=== PATIENT | female | born 1960 | race Two or more races ===

== ENCOUNTER 2017-11-08 08:01 | Emergency (ER) | payer OTHER ==
[~2017-11-08] VITALS: Ht 160 cm; Wt 65.5 kg
[~2017-11-08 08:01] MED LIST: ALBU2.5V NEB; DOXY100T PO; FLUT1DIS5 IH; LEVO750T26; METF25CR; OMNICEF PO; PRED10TA14; PRED10TA14 PO
[2017-11-08] MEDS ORDERED: METF10002 PO (08:51)
[2017-11-08] MEDS ORDERED: LISI-167 PO (08:55)
[2017-11-08] MEDS ORDERED: LOVA10TA PO (08:55)
[2017-11-08] MEDS ORDERED: GLIM4TAB2 PO (08:55)
[2017-11-08] MEDS ORDERED: SODIUM CHLORIDE FLUSH 10ML SYR IVF ONE (09:00)
[2017-11-08] MEDS ORDERED: SODIUM CHLORIDE 0.9% 1,000ML IVBOLUS ONE (09:00)
[2017-11-08 09:19] LABS: BASOPHILS # (AUTO) 0.07 x10^3/uL (0-0.1); BASOPHILS % (AUTO) 1 % (0-1); EOSINOPHILS % (AUTO) 9 % (1-7); LYMPHOCYTES # (AUTO) 2.64 x10^3/uL (1-3.4); LYMPHOCYTES % (AUTO) 29 % (22-44); MD NO; MEAN CORPUSCULAR HEMOGLOBIN 31.8 pg (27.0-34.8); MEAN CORPUSCULAR HGB CONC 33.9 g/dL (32.4-35.8); MEAN CORPUSCULAR VOLUME 93.9 fL (80-100); MEAN PLATELET VOLUME 9.7 fL (7.4-10.4); MONOCYTES # (AUTO) 0.74 x10^3/uL (0.2-0.8); MONOCYTES % (AUTO) 8 % (2-9); NEUTROPHILS # (AUTO) 4.79 x10^3/uL (1.8-6.8); NEUTROPHILS % (AUTO) 53 % (42-75); PLATELET COUNT 210 x10^3/uL (130-400); RED BLOOD COUNT 4.57 x10^6/uL (3.82-5.3); RED CELL DISTRIBUTION WIDTH 13.8 % (9.6-15.2)
[2017-11-08] MEDS: ALBUTEROL/IPRATROPIUM 2.5MG/0.5MG, 3 ML NPPB SCH ×2 (09:20→10:33)
[2017-11-08] MEDS ORDERED: ALBUTEROL/IPRATROPIUM 2.5MG/0.5MG, 3 ML ONE ×2 (09:20→10:33)
[2017-11-08 09:30] LABS: ALBUMIN 3.7 g/dL (3.4-5.0); ANION GAP 8 mmol/L (5-15); CALCIUM 8.7 mg/dL (8.5-10.1); CHLORIDE 111 mmol/L (98-107); CREATININE 0.73 mg/dL (0.55-1.02)
[2017-11-08] MEDS ORDERED: ALBUTEROL SULFATE 2.5 MG/3 ML NPPB ONE (10:30)
[2017-11-08] MEDS ORDERED: ALBUTEROL SULFATE 2.5MG/0.5ML ONE (10:35)
[2017-11-08 11:24] VITALS: BP 124/64
== END 2017-11-08 11:28 | disposition home or self-care (01) ==
LOC: ED 10:52
DX: J45.30 Mild persistent asthma, uncomplicated (principal); J40 Bronchitis, not specified as acute or chronic; I10 Essential (primary) hypertension; E11.9 Type 2 diabetes mellitus without complications; E78.5 Hyperlipidemia, unspecified
CPT/HCPCS: 36415; 71046; 80048; 82040; 83605; 85025; 93005; 94640; 99285; J7512; J7613; J7620

== ENCOUNTER 2018-01-02 20:12 | Inpatient (IN) | payer OTHER ==
[~2018-01-02] VITALS: Ht 160 cm; Wt 65.9 kg
[~2018-01-02 20:12] MED LIST changes: +GLIM4TAB2 PO; +LISI-167 PO; +LOVA10TA PO; +METF10002 PO
[2018-01-02] MEDS ORDERED: ALBUTEROL/IPRATROPIUM 2.5MG/0.5MG, 3 ML NPPB ONE (20:30)
[2018-01-02 20:53] LABS: BASOPHILS # (AUTO) 0.09 x10^3/uL (0-0.1); BASOPHILS % (AUTO) 1 % (0-1); EOSINOPHILS # (AUTO) 1.01 x10^3/uL (0-0.4); EOSINOPHILS % (AUTO) 11 % (1-7); LYMPHOCYTES # (AUTO) 3.78 x10^3/uL (1-3.4); LYMPHOCYTES % (AUTO) 40 % (22-44); MD NO; MEAN CORPUSCULAR HEMOGLOBIN 31.6 pg (27.0-34.8); MEAN CORPUSCULAR HGB CONC 33.8 g/dL (32.4-35.8); MEAN CORPUSCULAR VOLUME 93.4 fL (80-100); MEAN PLATELET VOLUME 9.9 fL (7.4-10.4); MONOCYTES # (AUTO) 0.78 x10^3/uL (0.2-0.8); MONOCYTES % (AUTO) 8 % (2-9); NEUTROPHILS # (AUTO) 3.83 x10^3/uL (1.8-6.8); NEUTROPHILS % (AUTO) 40 % (42-75); PLATELET COUNT 228 x10^3/uL (130-400); RED BLOOD COUNT 4.38 x10^6/uL (3.82-5.3)
[2018-01-02 20:57] LABS: RAPID INFLUENZA A Negative (Negative); RAPID INFLUENZA B Negative (Negative)
[2018-01-02 21:04] LABS: ALANINE AMINOTRANSFERASE 34 U/L (12-78); ALBUMIN 3.6 g/dL (3.4-5.0); ANION GAP 8 mmol/L (5-15); CALCIUM 8.2 mg/dL (8.5-10.1); CHLORIDE 108 mmol/L (98-107); CREATININE 0.82 mg/dL (0.55-1.02)
[2018-01-02 21:08] LABS: ALKALINE PHOSPHATASE 100 U/L (45-117); BILIRUBIN,TOTAL 0.2 mg/dL (0.2-1.0); TOTAL PROTEIN 7.2 g/dL (6.4-8.2); TROPONIN I < 0.015 ng/mL (0.000-0.045)
[2018-01-02] MEDS ORDERED: ALBUTEROL/IPRATROPIUM 2.5MG/0.5MG, 3 ML ONE ×2 (21:53→21:55)
[2018-01-02] MEDS ORDERED: ALBUTEROL/IPRATROPIUM 2.5MG/0.5MG, 3 ML NEB ONE (22:00)
[2018-01-02] MEDS ORDERED: ALBUTEROL SULFATE 2.5 MG/3 ML ONE (23:28)
[2018-01-02] MEDS ORDERED: SODIUM CHLORIDE 0.9% 1,000ML IVBOLUS ONE (23:30)
[2018-01-02] MEDS ORDERED: ALBUTEROL SULFATE 2.5 MG/3 ML NPPB ONE (23:30)
[2018-01-03] MEDS ORDERED: APAP/CODEINE 300/30MG TABLET PO ONE
[2018-01-03] MEDS ORDERED: morphine SULFATE 10 MG/ML, 1ML IVPush PRN (01:00)
[2018-01-03] MEDS ORDERED: ENALAPRILAT 1.25 MG/ML, 2ML IVPush PRN (01:00)
[2018-01-03] MEDS ORDERED: hydrALAzine 20 MG/ML, 1ML IVPush PRN (01:00)
[2018-01-03] MEDS ORDERED: ACETAMINOPHEN 325 MG TABLET PO PRN (01:00)
[2018-01-03] MEDS ORDERED: POLYETHYLENE GLYCOL 17 GM PACKET PO PRN (01:00)
[2018-01-03] MEDS ORDERED: ONDANSETRON 2MG/ML, 2ML IVPush PRN (01:00)
[2018-01-03] MEDS ORDERED: BISACODYL 10 MG SUPP PR PRN (01:00)
[2018-01-03] MEDS: ALBUTEROL/IPRATROPIUM 2.5MG/0.5MG, 3 ML NPPB SCH ×4 (01:28→16:00)
[2018-01-03] MEDS ORDERED: FLUTICASONE/VILANTEROL 200-25MCG/INH INH SCH (01:30)
[2018-01-03 02:00] LABS: FREE T4 (FREE THYROXINE) 0.98 ng/dL (0.76-1.46); THYROID STIMULATING HORMONE 2.81 mIU/L (0.358-3.740)
[2018-01-03 02:28] LABS: HEMOGLOBIN A1C 7.9 % (4.2-6.3)
[2018-01-03] MEDS ORDERED: HEPARIN 5,000 UNITS/ML, 1ML ONE ×2 (03:25→10:15)
[2018-01-03] MEDS ORDERED: methylPREDNISolone SOD SUCC 125 MG/2 ML ONE ×2 (03:25→10:16)
[2018-01-03] MEDS ORDERED: DOXYCYCLINE 100MG TABLET ONE ×2 (03:25→10:16)
[2018-01-03] MEDS: SODIUM CHLORIDE 0.9% 1,000 ML IV SCH ×2 (03:32→11:49)
[2018-01-03] MEDS: methylPREDNISolone SOD SUCC 125 MG/2 ML IVPush SCH ×3 (03:32→16:16)
[2018-01-03] MEDS: DOXYCYCLINE 100MG TABLET PO SCH ×2 (03:33→11:01)
[2018-01-03] MEDS: HEPARIN 5,000 UNITS/ML, 1ML SQ SCH ×2 (03:33→11:02)
[2018-01-03 05:49] LABS: BASOPHILS # (AUTO) 0.02 x10^3/uL (0-0.1); BASOPHILS % (AUTO) 0 % (0-1); EOSINOPHILS # (AUTO) 0.01 x10^3/uL (0-0.4); EOSINOPHILS % (AUTO) 0 % (1-7); LYMPHOCYTES % (AUTO) 12 % (22-44); MD NO; MEAN CORPUSCULAR HEMOGLOBIN 32.2 pg (27.0-34.8); MEAN CORPUSCULAR HGB CONC 34.7 g/dL (32.4-35.8); MEAN CORPUSCULAR VOLUME 92.8 fL (80-100); MEAN PLATELET VOLUME 9.6 fL (7.4-10.4); MONOCYTES # (AUTO) 0.03 x10^3/uL (0.2-0.8); MONOCYTES % (AUTO) 0 % (2-9); NEUTROPHILS # (AUTO) 7.48 x10^3/uL (1.8-6.8); NEUTROPHILS % (AUTO) 88 % (42-75); PLATELET COUNT 205 x10^3/uL (130-400); RED BLOOD COUNT 4.32 x10^6/uL (3.82-5.3); RED CELL DISTRIBUTION WIDTH 13.5 % (9.6-15.2)
[2018-01-03 06:00] LABS: ALANINE AMINOTRANSFERASE 32 U/L (12-78); ALBUMIN 3.6 g/dL (3.4-5.0); ANION GAP 9 mmol/L (5-15); CALCIUM 8.3 mg/dL (8.5-10.1); CHLORIDE 106 mmol/L (98-107); CREATININE 0.87 mg/dL (0.55-1.02)
[2018-01-03 06:15] LABS: ALKALINE PHOSPHATASE 91 U/L (45-117); BILIRUBIN,TOTAL 0.4 mg/dL (0.2-1.0); TOTAL PROTEIN 7.2 g/dL (6.4-8.2)
[2018-01-03] MEDS ORDERED: ALBUTEROL/IPRATROPIUM 2.5MG/0.5MG, 3 ML ONE (06:20)
[2018-01-03] MEDS: INSULIN LISPRO 100 UNITS/ML, PEN SQ-INSULIN SCH ×3 (08:23→16:16)
[2018-01-03] MEDS ORDERED: metFORMIN 500 MG TABLET PO SCH (09:00)
[2018-01-03] MEDS ORDERED: GLIMEPIRIDE 4 MG TABLET PO SCH (09:00)
[2018-01-03] MEDS ORDERED: SENNA/DOCUSATE TABLET PO SCH (09:00)
[2018-01-03] MEDS ORDERED: LISINOPRIL 10 MG TABLET PO SCH (09:00)
[2018-01-03] MEDS ORDERED: SENNA/DOCUSATE TABLET ONE (10:15)
[2018-01-03 11:53] VITALS: BP 135/69
[2018-01-03 12:42] LABS: MICROSCOPIC NOT IND
[2018-01-03 12:51] LABS: CULTURE INDICATED? NO
[2018-01-03 14:39] VITALS: BP 107/53
[2018-01-03] MEDS ORDERED: METF10002 PO (17:04)
[2018-01-03] MEDS ORDERED: GLIM4TAB2 PO (17:04)
[2018-01-03] MEDS ORDERED: IPRA3AMP NPPB (17:04)
[2018-01-03] MEDS ORDERED: DOXY100T PO (17:04)
[2018-01-03] MEDS ORDERED: LISI-167 PO (17:04)
[2018-01-03] MEDS ORDERED: FLUT1BLS INH (17:04)
[2018-01-03] MEDS ORDERED: LOVA10TA PO (17:04)
[2018-01-03] MEDS ORDERED: GUAI-110 PO (17:04)
[2018-01-03] MEDS ORDERED: PRED5TAB PO (17:04)
[2018-01-03] MEDS ORDERED: LOVASTATIN 20 MG TABLET PO SCH (21:00)
[2018-01-03] MEDS ORDERED: LOVASTATIN 10 MG TABLET PO SCH (21:00)
== END 2018-01-03 17:48 | disposition home or self-care (01) | DRG 189 ==
LOC: ED 22:51 → EDIP 01-03 01:58 → 4EST 01-03 11:56
PROVIDERS: ADMIT Internal Medicine; ATTEND Internal Medicine
DX: J96.01 Acute respiratory failure with hypoxia (principal); E11.65 Type 2 diabetes mellitus with hyperglycemia; J44.1 Chronic obstructive pulmonary disease with (acute) exacerbation; I16.0 Hypertensive urgency; Z91.14 Patient's other noncompliance with medication regimen; E78.5 Hyperlipidemia, unspecified; F17.210 Nicotine dependence, cigarettes, uncomplicated; I10 Essential (primary) hypertension; Z82.5 Family history of asthma and other chronic lower respiratory diseases; Z98.891 History of uterine scar from previous surgery
CPT/HCPCS: 36415; 71045; 80053; 81003; 82962; 83036; 83735; 84439; 84443; 84484; 85025; 87070; 87205; 87400; 93005; 94640; 96372; J1644; J7613; J7620; J1815; J2930; J7030; J7512

== ENCOUNTER 2018-10-23 07:57 | Emergency (ER) | payer SELFPAY ==
[~2018-10-23] VITALS: Ht 162.6 cm; Wt 66.0 kg
[~2018-10-23 07:57] MED LIST changes: +FLUT1BLS INH; +GUAI-110 PO; +IPRA3AMP30 NPPB; -METF10002 PO; +METF10007 PO; +PRED5TAB PO
[2018-10-23] MEDS ORDERED: IBUPROFEN 200 MG TABLET PO ONE (08:30)
[2018-10-23] MEDS ORDERED: ALBUTEROL/IPRATROPIUM 2.5MG/0.5MG, 3 ML NPPB ONE (08:30)
[2018-10-23] MEDS ORDERED: IBUPROFEN 600 MG TABLET ONE (08:39)
[2018-10-23] MEDS ORDERED: ALBUTEROL/IPRATROPIUM 2.5MG/0.5MG, 3 ML ONE (08:50)
[2018-10-23 08:57] LABS: BASOPHILS # (AUTO) 0.02 x10^3/uL (0-0.1); BASOPHILS % (AUTO) 0 % (0-1); EOSINOPHILS # (AUTO) 0.09 x10^3/uL (0-0.4); EOSINOPHILS % (AUTO) 1 % (1-7); LYMPHOCYTES # (AUTO) 0.51 x10^3/uL (1-3.4); LYMPHOCYTES % (AUTO) 5 % (22-44); MD NO; MEAN CORPUSCULAR HEMOGLOBIN 31.9 pg (27.0-34.8); MEAN CORPUSCULAR HGB CONC 34.2 g/dL (32.4-35.8); MEAN CORPUSCULAR VOLUME 93.1 fL (80-100); MONOCYTES # (AUTO) 0.68 x10^3/uL (0.2-0.8); MONOCYTES % (AUTO) 7 % (2-9); NEUTROPHILS % (AUTO) 87 % (42-75); PLATELET COUNT 196 x10^3/uL (130-400); RED BLOOD COUNT 4.81 x10^6/uL (3.82-5.3); RED CELL DISTRIBUTION WIDTH 13.7 % (9.6-15.2)
[2018-10-23 09:01] LABS: RAPID INFLUENZA A Negative (Negative); RAPID INFLUENZA B Negative (Negative)
[2018-10-23 09:07] LABS: ANION GAP 9 mmol/L (5-15); CHLORIDE 105 mmol/L (98-107); CREATININE 0.91 mg/dL (0.55-1.02)
[2018-10-23 09:08] LABS: ALANINE AMINOTRANSFERASE 28 U/L (12-78); ALBUMIN 4.1 g/dL (3.4-5.0)
[2018-10-23 09:10] LABS: ALKALINE PHOSPHATASE 104 U/L (45-117); BILIRUBIN,TOTAL 0.4 mg/dL (0.2-1.0); TOTAL PROTEIN 8.2 g/dL (6.4-8.2)
[2018-10-23] MEDS ORDERED: OMNIPAQUE 350 MG/ML, 100ML BOTTLE ONE (11:09)
[2018-10-23 12:00] VITALS: BP 130/65
== END 2018-10-23 12:33 | disposition home or self-care (01) ==
LOC: ED 09:27
DX: R06.00 Dyspnea, unspecified (principal); R07.89 Other chest pain; R09.02 Hypoxemia; E78.5 Hyperlipidemia, unspecified; I10 Essential (primary) hypertension; G43.909 Migraine, unspecified, not intractable, without status migrainosus; E11.9 Type 2 diabetes mellitus without complications; J45.909 Unspecified asthma, uncomplicated
CPT/HCPCS: 36415; 71045; 71275; 80053; 83605; 85025; 87040; 87400; 93005; 94640; 99284; J7620; Q9967

== ENCOUNTER 2018-10-23 16:19 | Inpatient (IN) | payer SELFPAY ==
[~2018-10-23] VITALS: Ht 162.6 cm; Wt 64.5 kg
[2018-10-23] MEDS ORDERED: SODIUM CHLORIDE FLUSH 10ML SYR IVF ONE (16:30)
[2018-10-23] MEDS ORDERED: ALBUTEROL/IPRATROPIUM 2.5MG/0.5MG, 3 ML NPPB SCH ×3 (16:30→22:00)
[2018-10-23] MEDS ORDERED: ALBUTEROL/IPRATROPIUM 2.5MG/0.5MG, 3 ML ONE (16:35)
[2018-10-23] MEDS ORDERED: PLEASE ENTER HEIGHT AND WEIGHT MC SCH (17:00)
[2018-10-23] MEDS ORDERED: ACETAMINOPHEN 325 MG TABLET PO PRN (17:00)
[2018-10-23] MEDS ORDERED: DEXTROSE 4 GM TAB.CHEW PO PRN ×2 (17:00→22:00)
[2018-10-23] MEDS ORDERED: BISACODYL 10 MG SUPP PR PRN ×2 (17:00→22:00)
[2018-10-23] MEDS ORDERED: DOCUSATE 100 MG CAPSULE PO PRN ×2 (17:00→22:00)
[2018-10-23] MEDS ORDERED: POLYETHYLENE GLYCOL 17 GM PACKET PO PRN ×2 (17:00→22:30)
[2018-10-23] MEDS ORDERED: CEFTRIAXONE PMX 1GM/50ML 50 ML IV SCH (17:00)
[2018-10-23] MEDS ORDERED: ONDANSETRON 2MG/ML, 2ML IVPush PRN (17:00)
[2018-10-23] MEDS ORDERED: KETOROLAC 30 MG/1 ML IV PRN (17:00)
[2018-10-23] MEDS ORDERED: FLUTICASONE/VILANTEROL 200-25MCG/INH INH SCH (17:00)
[2018-10-23] MEDS ORDERED: GLUCAGON 1 MG IM PRN ×2 (17:00→22:30)
[2018-10-23] MEDS ORDERED: ENOXAPARIN 40 MG/0.4 ML SQ SCH (17:00)
[2018-10-23] MEDS ORDERED: DOXYCYCLINE 100 MG in DEXTROSE 5% 250 ML IV SCH (17:00)
[2018-10-23] MEDS ORDERED: ENALAPRILAT 1.25 MG/ML, 2ML IVPush PRN ×2 (17:00→22:00)
[2018-10-23] MEDS ORDERED: DEXTROSE 50%, 50ML SYRINGE IVPush PRN (17:00)
[2018-10-23] MEDS ORDERED: methylPREDNISolone SOD SUCC 125 MG/2 ML IVPush SCH (17:00)
[2018-10-23 17:03] LABS: BASOPHILS # (AUTO) 0.03 x10^3/uL (0-0.1); BASOPHILS % (AUTO) 0 % (0-1); EOSINOPHILS # (AUTO) 0.05 x10^3/uL (0-0.4); EOSINOPHILS % (AUTO) 1 % (1-7); LYMPHOCYTES # (AUTO) 1.66 x10^3/uL (1-3.4); LYMPHOCYTES % (AUTO) 16 % (22-44); MD NO; MEAN CORPUSCULAR HEMOGLOBIN 31.9 pg (27.0-34.8); MEAN CORPUSCULAR HGB CONC 34.2 g/dL (32.4-35.8); MEAN CORPUSCULAR VOLUME 93.3 fL (80-100); MEAN PLATELET VOLUME 10.2 fL (7.4-10.4); MONOCYTES # (AUTO) 1.02 x10^3/uL (0.2-0.8); MONOCYTES % (AUTO) 10 % (2-9); NEUTROPHILS # (AUTO) 7.41 x10^3/uL (1.8-6.8); NEUTROPHILS % (AUTO) 73 % (42-75); PLATELET COUNT 209 x10^3/uL (130-400); RED BLOOD COUNT 4.85 x10^6/uL (3.82-5.3); RED CELL DISTRIBUTION WIDTH 13.8 % (9.6-15.2)
[2018-10-23 17:09] LABS: CHLORIDE 104 mmol/L (98-107)
[2018-10-23 17:10] LABS: ALBUMIN 3.9 g/dL (3.4-5.0); ANION GAP 11 mmol/L (5-15); CALCIUM 9.5 mg/dL (8.5-10.1); CREATININE 1.11 mg/dL (0.55-1.02)
[2018-10-23] MEDS ORDERED: CEFTRIAXONE PMX 1GM/50ML 50 ML ONE (17:10)
[2018-10-23] MEDS ORDERED: methylPREDNISolone SOD SUCC 125 MG/2 ML ONE (17:10)
[2018-10-23 17:49] LABS: HEMOGLOBIN A1C 7.9 % (4.2-6.3)
[2018-10-23] MEDS: NS + 20MEQ KCL 1,000 ML IV SCH (20:45)
[2018-10-23 20:54] VITALS: BP 151/77
[2018-10-23] MEDS ORDERED: LOVASTATIN 10 MG TABLET PO SCH (21:00)
[2018-10-23] MEDS ORDERED: GUAIFENESIN ER 600 MG TABLET PO SCH (21:00)
[2018-10-23] MEDS ORDERED: metFORMIN 500 MG TABLET PO SCH (21:00)
[2018-10-23] MEDS ORDERED: INSULIN LISPRO 100 UNITS/ML, PEN SQ-INSULIN SCH (21:00)
[2018-10-23] MEDS ORDERED: SODIUM CHLORIDE FLUSH 10ML SYR IVF SCH (21:00)
[2018-10-23] MEDS: GUAIFENESIN ER 600 MG TABLET PO SCH (22:06)
[2018-10-23] MEDS: metFORMIN 500 MG TABLET PO SCH (22:07)
[2018-10-23] MEDS: LOVASTATIN 10 MG TABLET PO SCH (22:07)
[2018-10-23] MEDS: methylPREDNISolone SOD SUCC 125 MG/2 ML IVPush SCH (23:19)
[2018-10-23] MEDS: ENOXAPARIN 40 MG/0.4 ML SQ SCH (23:19)
[2018-10-24 01:14] VITALS: BP 138/73
[2018-10-24] MEDS ORDERED: ALBUTEROL/IPRATROPIUM 2.5MG/0.5MG, 3 ML NPPB PRN (03:30)
[2018-10-24] MEDS: methylPREDNISolone SOD SUCC 125 MG/2 ML IVPush SCH ×4 (05:30→22:19)
[2018-10-24] MEDS: ALBUTEROL/IPRATROPIUM 2.5MG/0.5MG, 3 ML NPPB SCH ×5 (06:48→20:53)
[2018-10-24] MEDS: BUDESONIDE 0.5 MG/2 ML INHA NPPB SCH ×2 (06:48→20:53)
[2018-10-24] MEDS: INSULIN LISPRO 100 UNITS/ML, PEN SQ-INSULIN SCH ×4 (07:58→19:56)
[2018-10-24] MEDS: NS + 20MEQ KCL 1,000 ML IV SCH (07:58)
[2018-10-24 08:19] VITALS: BP 123/63
[2018-10-24 08:43] LABS: BASOPHILS % (AUTO) 0 % (0-1); EOSINOPHILS % (AUTO) 0 % (1-7); LYMPHOCYTES # (AUTO) 0.42 x10^3/uL (1-3.4); LYMPHOCYTES % (AUTO) 6 % (22-44); MD NO; MEAN CORPUSCULAR HEMOGLOBIN 31.7 pg (27.0-34.8); MEAN CORPUSCULAR VOLUME 93.2 fL (80-100); MONOCYTES # (AUTO) 0.09 x10^3/uL (0.2-0.8); MONOCYTES % (AUTO) 1 % (2-9); NEUTROPHILS % (AUTO) 93 % (42-75); PLATELET COUNT 190 x10^3/uL (130-400); RED BLOOD COUNT 4.49 x10^6/uL (3.82-5.3); RED CELL DISTRIBUTION WIDTH 13.9 % (9.6-15.2)
[2018-10-24 08:48] LABS: ANION GAP 8 mmol/L (5-15); CALCIUM 8.3 mg/dL (8.5-10.1); CHLORIDE 110 mmol/L (98-107); CREATININE 0.93 mg/dL (0.55-1.02)
[2018-10-24] MEDS ORDERED: LISINOPRIL 10 MG TABLET PO SCH (09:00)
[2018-10-24] MEDS: DOXYCYCLINE 100 MG in DEXTROSE 5% 250 ML IV SCH ×2 (09:54→19:55)
[2018-10-24] MEDS: GUAIFENESIN ER 600 MG TABLET PO SCH ×2 (09:54→19:55)
[2018-10-24] MEDS: LISINOPRIL 10 MG TABLET PO SCH (09:55)
[2018-10-24] MEDS: metFORMIN 500 MG TABLET PO SCH ×2 (09:55→19:55)
[2018-10-24] MEDS: KETOROLAC 30 MG/1 ML IV PRN ×3 (10:01→22:56)
[2018-10-24] MEDS: SODIUM CHLORIDE FLUSH 10ML SYR IVF SCH ×2 (10:02→19:56)
[2018-10-24] MEDS: ACETAMINOPHEN 325 MG TABLET PO PRN ×2 (12:34→19:55)
[2018-10-24 13:42] VITALS: BP 113/63
[2018-10-24] MEDS: CEFTRIAXONE PMX 1GM/50ML 50 ML IV SCH (16:57)
[2018-10-24 19:17] VITALS: BP 117/65
[2018-10-24] MEDS: LOVASTATIN 10 MG TABLET PO SCH (19:55)
[2018-10-24] MEDS: ENOXAPARIN 40 MG/0.4 ML SQ SCH (22:20)
[2018-10-25 01:15] VITALS: BP 121/60
[2018-10-25] MEDS: ALBUTEROL/IPRATROPIUM 2.5MG/0.5MG, 3 ML NPPB SCH ×4 (03:00→19:37)
[2018-10-25 04:58] LABS: BASOPHILS # (AUTO) 0.02 x10^3/uL (0-0.1); BASOPHILS % (AUTO) 0 % (0-1); EOSINOPHILS % (AUTO) 0 % (1-7); LYMPHOCYTES # (AUTO) 0.73 x10^3/uL (1-3.4); LYMPHOCYTES % (AUTO) 5 % (22-44); MD NO; MEAN CORPUSCULAR HEMOGLOBIN 31.8 pg (27.0-34.8); MEAN CORPUSCULAR HGB CONC 33.6 g/dL (32.4-35.8); MEAN CORPUSCULAR VOLUME 94.5 fL (80-100); MEAN PLATELET VOLUME 10.3 fL (7.4-10.4); MONOCYTES # (AUTO) 0.56 x10^3/uL (0.2-0.8); MONOCYTES % (AUTO) 4 % (2-9); NEUTROPHILS # (AUTO) 12.37 x10^3/uL (1.8-6.8); NEUTROPHILS % (AUTO) 90 % (42-75); PLATELET COUNT 197 x10^3/uL (130-400); RED BLOOD COUNT 4.25 x10^6/uL (3.82-5.3); RED CELL DISTRIBUTION WIDTH 13.7 % (9.6-15.2)
[2018-10-25 05:06] LABS: ANION GAP 9 mmol/L (5-15); CALCIUM 8.3 mg/dL (8.5-10.1); CHLORIDE 113 mmol/L (98-107); CREATININE 1.06 mg/dL (0.55-1.02)
[2018-10-25] MEDS: methylPREDNISolone SOD SUCC 125 MG/2 ML IVPush SCH ×4 (05:07→22:44)
[2018-10-25] MEDS: BUDESONIDE 0.5 MG/2 ML INHA NPPB SCH ×2 (06:42→19:37)
[2018-10-25 07:22] VITALS: BP 115/68
[2018-10-25] MEDS: LISINOPRIL 10 MG TABLET PO SCH (08:21)
[2018-10-25] MEDS: GUAIFENESIN ER 600 MG TABLET PO SCH ×2 (08:21→19:49)
[2018-10-25] MEDS: metFORMIN 500 MG TABLET PO SCH ×2 (08:22→19:49)
[2018-10-25] MEDS: DOXYCYCLINE 100 MG in DEXTROSE 5% 250 ML IV SCH ×2 (08:22→19:48)
[2018-10-25] MEDS: SODIUM CHLORIDE FLUSH 10ML SYR IVF SCH ×2 (08:22→19:49)
[2018-10-25] MEDS: INSULIN LISPRO 100 UNITS/ML, PEN SQ-INSULIN SCH ×4 (08:23→19:48)
[2018-10-25] MEDS: KETOROLAC 30 MG/1 ML IV PRN (10:55)
[2018-10-25] MEDS: ONDANSETRON 2MG/ML, 2ML IVPush PRN ×2 (11:09→19:49)
[2018-10-25 13:29] VITALS: BP 114/64
[2018-10-25] MEDS: CEFTRIAXONE PMX 1GM/50ML 50 ML IV SCH (16:35)
[2018-10-25 19:03] VITALS: BP 125/66
[2018-10-25] MEDS: LOVASTATIN 10 MG TABLET PO SCH (19:49)
[2018-10-25] MEDS: ENOXAPARIN 40 MG/0.4 ML SQ SCH (22:44)
[2018-10-26] MEDS: ALBUTEROL/IPRATROPIUM 2.5MG/0.5MG, 3 ML NPPB SCH ×2 (02:22→09:00)
[2018-10-26 02:35] VITALS: BP 121/50
[2018-10-26] MEDS: methylPREDNISolone SOD SUCC 125 MG/2 ML IVPush SCH (05:56)
[2018-10-26 07:18] VITALS: BP 124/60
[2018-10-26] MEDS: INSULIN LISPRO 100 UNITS/ML, PEN SQ-INSULIN SCH (07:54)
[2018-10-26] MEDS ORDERED: DOXY100T PO (08:36)
[2018-10-26] MEDS ORDERED: PRED20TA PO (08:36)
[2018-10-26] MEDS ORDERED: CEFD300C37 PO (08:36)
[2018-10-26] MEDS: BUDESONIDE 0.5 MG/2 ML INHA NPPB SCH (09:00)
[2018-10-26] MEDS: SODIUM CHLORIDE FLUSH 10ML SYR IVF SCH (09:00)
[2018-10-26] MEDS: DOXYCYCLINE 100 MG in DEXTROSE 5% 250 ML IV SCH (09:00)
[2018-10-26] MEDS: metFORMIN 500 MG TABLET PO SCH (09:57)
[2018-10-26] MEDS: LISINOPRIL 10 MG TABLET PO SCH (09:57)
[2018-10-26] MEDS: GUAIFENESIN ER 600 MG TABLET PO SCH (09:57)
[2018-10-26] MEDS: KETOROLAC 30 MG/1 ML IV PRN (10:13)
[2018-10-26] MEDS: ONDANSETRON 2MG/ML, 2ML IVPush PRN (10:42)
== END 2018-10-26 11:25 | disposition home or self-care (01) | DRG 189 ==
LOC: ED 18:01 → 3NE 18:05 → UNDODISIN 20:02 → DCLOUNGE 10-26 11:10
PROVIDERS: ADMIT Internal Medicine; ATTEND Internal Medicine
DX: J96.01 Acute respiratory failure with hypoxia (principal); J44.1 Chronic obstructive pulmonary disease with (acute) exacerbation; T38.0X5A Adverse effect of glucocorticoids and synthetic analogues, initial encounter; I11.9 Hypertensive heart disease without heart failure; E11.65 Type 2 diabetes mellitus with hyperglycemia; E78.5 Hyperlipidemia, unspecified; F17.210 Nicotine dependence, cigarettes, uncomplicated; Z99.81 Dependence on supplemental oxygen; Z79.84 Long term (current) use of oral hypoglycemic drugs; Y92.89 Other specified places as the place of occurrence of the external cause; Z82.5 Family history of asthma and other chronic lower respiratory diseases; Z98.891 History of uterine scar from previous surgery; Z91.14 Patient's other noncompliance with medication regimen; Z23 Encounter for immunization
CPT/HCPCS: 36415; 36600; 99285; J7620; J7626; 71045; 80048; 82040; 82803; 82947; 82962; 83036; 83880; 85025; 90656; 93005; 94640; G0378; J0696; J1650; J1885; J2405; J3480; J7060; J1815; J2930